=== PATIENT | female | born 1975 | race Caucasian/White ===

== ENCOUNTER 2022-03-06 11:09 | Emergency (ER) | payer MEDICAID, SELFPAY ==
[2022-03-06] VITALS (8 sets, daily range): BP systolic 106–124; BP diastolic 66–78; PULSE 85–128; RESP 14–22; TEMP 36.6–37; O2SAT 98–100; BMI 30.9
--- NOTE | 2022-03-06 11:51 | CT_ITS ---
WS: [id number] CT ABDOMEN PELVIS TECHNIQUE: Contrast-enhanced CT of the abdomen and pelvis with coronal and sagittal reformatted image s. CLINICAL INFORMATION: abd distension COMPARISON: None. DLP: 820.[address] scans at [facility] use at least one of these dose optimization techniques: automated e xposure control; mA and/or kV adjustment per patient size (includes targeted exams where dose is matc hed to clinical indication); or iterative reconstruction. FINDINGS: Diffuse body wall anasarca. Cirrhotic configuration to the liver. Coarse heterogeneous hepatic parenc hymal enhancement. Mild intrahepatic biliary ductal dilatation. Portal vein and splenic vein are santana nt. Normal spleen. Gallbladder appears normal. Mild perihepatic and perisplenic ascites. Suggestion o f a few upper abdominal varices. Recommend correlation for portal venous hypertension. Normal GE junc tion. A few low-attenuation lesions in the liver too small to characterize most likely tiny cysts. Ti ny bilateral pleural effusions. Slight bibasilar atelectasis. Normal pancreatic parenchymal enhancement. Celiac and SMA appear patent. Adrenal Glands are normal. Normal renal parenchymal enhancement. No hydronephrosis. Moderate lower abdominal and pelvic ascites. Sigmoid colon appears normal. No evidence of high-grade small or large bowel obstruction. Heterogeneous RIGHT ovarian cyst measuring 3.5 CM. This is followed up with ultrasound. CT/CT abdomen pelvis w con* [id number] IMPRESSION: 1. Cirrhotic configuration to the liver with suggestion of upper abdominal asc ites. Recommend correlation with liver function tests. Findings suggestive of d eveloping portal hypertension. 2. Diffuse body wall anasarca. 3. Perihepatic and perisplenic ascites. Moderate lower abdominal and pelvic as cites. 4. Normal renal parenchymal enhancement. No hydronephrosis in either kidney. 5. Normal caliber abdominal aorta. 6. Heterogeneous RIGHT ovarian cyst measuring 3.5CCM. This can be followed up with ultrasound. 7. Small bilateral pleural effusions.
[2022-03-06 11:54] LABS: Basophils % 0.1 %; Eosinophils # 0.1 10^3/uL (0.0-0.8); Eosinophils % 1.6 %; Lymphocytes # 2.6 10^3/uL (0.8-4.8); Lymphocytes % 29.8 %; Mean Corpuscular HGB Conc 24.5 g/dL (30.0-36.0); Mean Corpuscular Hemoglobin 17.3 pg (28.0-34.0); Mean Corpuscular Volume 70.7 fl (81-99); Monocytes # 0.6 10^3/uL (0.2-0.9); Monocytes % 6.8 %; Neutrophils # 5.33 10^3/uL (1.8-7.7); Neutrophils % 61.4 %; Nucleated Red Blood Cells % 0 %; Platelet Count 234 10^3/cmm (130-400); Red Cell Distribution Width 23.6 % (12.1-15.1); White Blood Count 8.7 10^3/uL (4.0-10.0)
[2022-03-06 11:58] LABS: Hematocrit 10.6 % (37.0-47.0); Hemoglobin 2.6 g/dL (11.5-15.3); INR 1.36 (0.8-1.2)
[2022-03-06 11:59] LABS: Partial Thromboplastin Time 33.1 SECONDS (23.9-36.7)
--- NOTE | 2022-03-06 12:01 | W.ED.GENADLT ---
HPI - General Adult General: Chief complaint: Recheck/Abnormal Lab/Rx Stated complaint: abnormal labs Time Seen by Provider: 03/06/22 11:43 History of Present Illness: Patient is a 46-year-old female history of chronic alcohol abuse presenting to the emergency room for concerns of low hemoglobin. Patient tells me over the last few months as she has become increasingly more fatigued. Patient finally said to do routine blood work earlier today was found to have a hemoglobin of 2.6 in clinic. Patient was then told to come to the emergency room immediately. Patient has any melena/medic easier, or hematemesis. Patient tells me that in the past, she has had heavy vaginal periods. Most recently, her vaginal bleeding has been controlled. Last vaginal bleeding was 2 months ago. She tells me that for the last few months she has had increased fatigue and inability to perform daily functions. Patient denies any fever/chills, cough, runny nose sore throat, abdominal pain diarrhea melena/hematochezia. Patient thinks that she has liver dysfunction has been follow-up with her primary care provider who tells her that her liver function has been improving since she stopped drinking alcohol 2 months ago. Onset:4 months ago Duration:4 months Location:home Severity:moderate Associated symptoms: Reports dyspnea; Deny chest pain, nausea, rash, palpitations or vomiting Review of Systems Const: Denies: fever(s) or chills Eyes: Denies: change in vision ENMT: Denies: mouth pain Card: Denies: chest pain or palpitations Resp: Reports: dyspnea; Denies: non-productive cough GI: Denies: abdominal pain, nausea, vomiting or diarrhea : Denies: dysuria Musc: Denies: extremity pain Skin/Breast: Denies: rash or new lesions Neuro: Reports: other (+light-headedness); Denies: weakness in extremities Psych: Reports: other (Normal mood) Jagjit/Lymph: Denies: easy bruising PFSH ED PFSH: Medical History Alcohol dependence Social History Smoking and tobacco status: current every day smoker Alcohol intake: former Substance/Drug Use: never Physical Exam Const: COMMON NORMALS: alert HENMT: COMMON NORMALS: atraumatic HEAD & SCALP: atraumatic MOUTH: moist mucous membranes not abnormal Eye: COMMON NORMALS: EOMs intact bilaterally and conjunctivae normal CONJUNCTIVA: Yes conjunctivae normal Neck/C-Spine: COMMON NORMALS: full ROM and supple Resp: COMMON NORMALS: normal respiratory effort and clear to auscultation bilaterally AUSCULTATION: clear to auscultation bilaterally Cardio: RATE: tachycardic GI: COMMON NORMALS: Soft to palpation PALPATION: Yes Soft to palpation OTHER: + Mild abdominal distention. No focal TTP. NO guarding rebound, guarding, rigidity. No CVA tenderness to percussion. Neg Murray/Neg McBurney's point tenderness, no suprabupic tenderness to palpation. Extremity: COMMON NORMALS: full ROM Neuro: SENSORIUM/ORIENTATION: Yes alert MOTOR EXAM: No Abnormal motor strength present and Other motor observations present (no focal motor deficits) Psych: COMMON NORMALS: speech normal SPEECH: Yes normal speech MOOD & AFFECT: Yes euthymic mood Course Vital Signs: Vital signs: Vital Signs Temperature 98.2 F 03/06/22 13:37 Pulse Rate 96 03/06/22 13:37 Respiratory Rate 14 03/06/22 13:37 Blood Pressure 106/73 03/06/22 13:37 Pulse Oximetry 98 03/06/22 13:37 Oxygen Delivery Me thod 03/06/22 11:52 [facility] - General Adult Medical Decision Making Patient is a 46-year-old female with a history of chronic alcohol abuse presenting to the emergency room with concerns of low hemoglobin of 2.6. On physical exam, patient is Hemoccult positive today. She is noted to be tachycardiac to the low 100s on exam. Patient has no hematemesis or melena or hematochezia. No focal abdominal tenderness palpation. CT of pelvis showed ascites with cirrhosis. with developing portal hypertension. Patient is getting blood transfusion. Potassium 2.7 patient will receive potassium repletion. Discussed case with Dr. Mancia who tells me at this time, given history of cirrhosis, this is likely to be possible variceal. Recommended transfer to a center with GI capability. Patient received Protonix, octreotide, Rocephin in the ER. Patient is currently getting blood. Patient is hemodynamically stable. Lactate elevation likely secondary to liver cirrhosis patient is afebrile without any focal complaints of pain and no leukocytosis. Patient received Rocephin regardless today. Case was discussed with Dr. Oneill from [facility] who agreed with the transfer to GI service for EGD in the setting of anemia and portal hypertension. Disposition: Transfer to outside hospital Lab Data : 03/06/22 11:35 03/06/22 11:35 Radiology Impressions Abdomen/Pelvis CT 03/06/22 11:51 IMPRESSION: 1. Cirrhotic configuration to the liver with suggestion of upper abdominal ascites. Recommend correlation with liver function tests. Findings suggestive of developing portal hypertension. 2. Diffuse body wall anasarca. 3. Perihepatic and perisplenic ascites. Moderate lower abdominal and pelvic ascites. 4. Normal renal parenchymal enhancement. No hydronephrosis in either kidney. 5. Normal caliber abdominal aorta. 6. Heterogeneous RIGHT ovarian cyst measuring 3.5CCM. This can be followed up with ultrasound. 7. Small bilateral pleural effusions. Laboratory Results WBC 8.7 10^3/uL (4.0-10.0) 03/06/22 11:35 RBC 1.50 10^6/uL (4.1-5.3) L 03/06/22 11:35 Hgb 2.6 g/dL (11.5-15.3) L* 03/06/22 11:35 Hct 10.6 % (37.0-47.0) L* 03/06/22 11:35 MCV 70.7 fl (81-99) L 03/06/22 11:35 MCH 17.3 pg (28.0-34.0) L 03/06/22 11:35 MCHC 24.5 g/dL (30.0-36.0) L 03/06/22 11:35 RDW 23.6 % (12.1-15.1) H 03/06/22 11:35 Plt Count 234 10^3/cmm (130-400) 03/06/22 11:35 MPV 10.0 fL (7.4-10.4) 03/06/22 11:35 Neut % (Auto) 61.4 % 03/06/22 11:35 Lymph % (Auto) 29.8 % 03/06/22 11:35 [place] % (Auto) 6.8 % 03/06/22 11:35 Eos % (Auto) 1.6 % 03/06/22 11:35 Baso % (Auto) 0.1 % 03/06/22 11:35 Neut # (Auto) 5.33 10^3/uL (1.8-7.7) 03/06/22 11:35 Lymph # (Auto) 2.6 10^3/uL (0.8-4.8) 03/06/22 11:35 [place] # (Auto) 0.6 10^3/uL (0.2-0.9) 03/06/22 11:35 Eos # (Auto) 0.1 10^3/uL (0.0-0.8) 03/06/22 11:35 Baso # (Auto) 0.0 10^3/uL (0.0-0.1) 03/06/22 11:35 Nucleated RBC % (auto) 0 % 03/06/22 11:35 Nucleated RBCs # 0.0 /100WBC 03/06/22 11:35 PT 17.10 SECONDS (12.1-14.9) H 03/06/22 11:35 INR 1.36 (0.8-1.2) H 03/06/22 11:35 APTT 33.1 SECONDS (23.9-36.7) 03/06/22 11:35 Sodium 137 mmol/L (136-145) 03/06/22 11:35 Potassium 2.7 mmol/L (3.5-5.1) L* 03/06/22 11:35 Chloride 102 mmol/L (98-107) 03/06/22 11:35 Carbon Dioxide 18 mmol/L (22-29) L 03/06/22 11:35 Anion Gap 19.7 (5-19) H 03/06/22 11:35 BUN 3 mg/dL (6-20) L 03/06/22 11:35 Creatinine 0.6 mg/dL (0.5-0.9) 03/06/22 11:35 GFR Calculation 107.6 mL/min (90-130) 03/06/22 11:35 Glucose 98 mg/dL (65-115) 03/06/22 11:35 Calculated Osmolality 281 mOsm/kg (285-295) L 03/06/22 11:35 Lactate 2.9 mmol/L (0.5-2.2) H 03/06/22 11:22 Calcium 8.1 mg/dL (8.5-10.5) L 03/06/22 11:35 Total Bilirubin 0.8 mg/dL (0.15-1.2) 03/06/22 11:35 AST 20 U/L (0-32) 03/06/22 11:35 ALT 8 U/L (0-33) 03/06/22 11:35 Alkaline Phosphatase 88 IU/L (35-105) 03/06/22 11:35 Total Protein 6.5 g/dL (6.6-8.7) L 03/06/22 11:35 Albumin 2.8 g/dL (3.5-5.2) L 03/06/22 11:35 Globulin 3.7 g/dL (1.3-4.6) 03/06/22 11:35 Lipase 32 U/L (13-60) 03/06/22 11:51 Blood Type O Positive 03/06/22 11:35 Rho(D) Type Positive 03/06/22 11:35 Antibody Screen Negative 03/06/22 11:35 Crossmatch See Detail 03/06/22 11:35 Imaging Data Other Imaging: Radiologist's impression: [place] [address] CT Scan Report Signed Patient: hGazal Muniz Unit #: [id number] : [id number] Age/Sex: 46 / F ADM Date: 03/06/22 Loc: ER Room/Bed: Attending Dr: Ordering Provider/Ordering MD: Radha Regalado MD Date of Service: 03/06/22 Procedure(s): CT abdomen pelvis w con* [id number] Accession Number(s): [id number] Report Number: [id number] WS: [id number] CT ABDOMEN PELVIS TECHNIQUE: Contrast-enhanced CT of the abdomen and pelvis with coronal and sagittal reformatted images. CLINICAL INFORMATION: abd distension COMPARISON: None. DLP: 820.[address] scans at [facility] use at least one of these dose optimization techniques: automated exposure control; mA and/or kV adjustment per patient size (includes targeted exams where dose is matched to clinical indication); or iterative reconstruction. FINDINGS: Diffuse body wall anasarca. Cirrhotic configuration to the liver. Coarse heterogeneous hepatic parenchymal enhancement. Mild intrahepatic biliary ductal dilatation. Portal vein and splenic vein are patent. Normal spleen. Gallbladder appears normal. Mild perihepatic and perisplenic ascites. Suggestion of a few upper abdominal varices. Recommend correlation for portal venous hypertension. Normal GE junction. A few low-attenuation lesions in the liver too small to characterize most likely tiny cysts. Tiny bilateral pleural effusions. Slight bibasilar atelectasis. Normal pancreatic parenchymal enhancement. Celiac and SMA appear patent. Adrenal Glands are normal. Normal renal parenchymal enhancement. No hydronephrosis. Moderate lower abdominal and pelvic ascites. Sigmoid colon appears normal. No evidence of high-grade small or large bowel obstruction. Heterogeneous RIGHT ovarian cyst measuring 3.5 CM. This is followed up with ultrasound. CT/CT abdomen pelvis w con* [id number] IMPRESSION: ? 1.? Cirrhotic configuration to the liver with suggestion of upper abdominal ascites. Recommend correlation with liver function tests. Findings suggestive of developing portal hypertension. 2.? Diffuse body wall anasarca. 3.? Perihepatic and perisplenic ascites. Moderate lower abdominal and pelvic ascites. 4.? Normal renal parenchymal enhancement. No hydronephrosis in either kidney. 5.? Normal caliber abdominal aorta. 6.? Heterogeneous RIGHT ovarian cyst measuring 3.5CCM. This can be followed up with ultrasound. 7.? Small bilateral pleural effusions. ? Dictated By: Jb Luciano MD Signed By: Jb Luciano MD Signed Date/Time: 03/06/22 1218 DD/ 1211 Discharge Plan Discharge Patient Disposition: Transfer to ED Clinical Impression: GI bleed, Cirrhosis Condition: Stable Prescriptions: No Action potassium chloride 20 mEq Tablet,Er Particles/Crystals 20 meq PO BID furosemide 20 mg Tablet 20 mg PO DAILY Miralax 17 gram/dose Powder 4 g PO DAILY Coding Level of Care Code ED Assistant Fitness Manager for Chg Fwd Exam Comprehensive
[2022-03-06] MEDS: iohexol 350 mg/mL 100 mL Btl IV (12:05)
[2022-03-06 12:16] LABS: Alanine Aminotransferase 8 U/L (0-33); Albumin Level 2.8 g/dL (3.5-5.2); Alkaline Phosphatase 88 IU/L (35-105); Anion Gap 19.7 (5-19); Aspartate Amino Transferase 20 U/L (0-32); Blood Urea Nitrogen 3 mg/dL (6-20); Calcium 8.1 mg/dL (8.5-10.5); Carbon Dioxide 18 mmol/L (22-29); Chloride 102 mmol/L (98-107); Globulin 3.7 g/dL (1.3-4.6); Glomerular Filtration Rate 107.6 mL/min (90-130); Glucose 98 mg/dL (65-115); Osmolality Calculated 281 mOsm/kg (285-295); Sodium 137 mmol/L (136-145); Total Bilirubin 0.8 mg/dL (0.15-1.2); Total Protein 6.5 g/dL (6.6-8.7)
[2022-03-06 12:18] LABS: Potassium 2.7 mmol/L (3.5-5.1)
[2022-03-06 12:29] LABS: Slide Review Slide Review Perform
[2022-03-06 12:57] LABS: Lactate (Lactic Acid level) 2.9 mmol/L (0.5-2.2)
[2022-03-06] MEDS: pantoprazole 40 mg SDV 80 MG IVP (12:59)
[2022-03-06] MEDS: cefTRIAXone 1,000 MG in sodium chloride 0.9% (plus) 50 ML 100 MG IV (13:00)
[2022-03-06] MEDS: potassium chloride premix 100 ML 25 MEQ IV (13:23)
[2022-03-06 13:26] LABS: Lipase 32 U/L (13-60)
[2022-03-06] MEDS: sodium chloride 0.9% 100 mL Bag 50 ML IV (13:26)
[2022-03-06] MEDS: octreotide 500 MCG in sodium chloride 0.9% (100 ml) 100 ML 10.1 MCG IV (13:29)
[2022-03-06] MEDS: sodium chloride 0.9% 500 ML 999 ML IV (13:50)
== END 2022-03-06 15:36 ==
PROVIDERS: Family Medicine; Physician Assistant; Emergency Provider Emergency Medicine
DX: K92.2 Gastrointestinal hemorrhage, unspecified (principal); K74.60 Unspecified cirrhosis of liver; F17.210 Nicotine dependence, cigarettes, uncomplicated
CPT/HCPCS: 36430; 74177; 80053; 83605; 83690; 85025; 85610; 85730; 86850; 86900; 86920; 96365; 96366; 96367; 96375; 99285; C9113; J0696; J2354; J3480; J7040; P9016; Q9967